=== PATIENT | female | born 1965 | race Caucasian/White ===

== ENCOUNTER → 2017-09-24 10:07 | Outpatient (POV) | payer BC, SELFPAY ==
[2017-09-24 10:34] VITALS: BP 116/77; PULSE 79; RESP 16; TEMP 36.5; O2SAT 97
--- NOTE | 2017-09-24 11:24 | HMH.PMCON ---
Assessment and Plan (1) Lumbosacral radiculopathy due to degenerative joint disease of spine Current visit: Yes Status: Chronic Category: Medical Code(s): M47.27 - Other spondylosis with radiculopathy, lumbosacral region (2) Degenerative joint disease of cervical and lumbar spine Current visit: Yes Status: Chronic Category: Medical Code(s): M47.812 - Spondylosis without myelopathy or radiculopathy, cervical region; M47.816 - Spondylosis without myelopathy or radiculopathy, lumbar region (3) Degenerative joint disease (DJD) of lumbar spine Current visit: Yes Status: Chronic Category: Medical Code(s): M47.816 - Spondylosis without myelopathy or radiculopathy, lumbar region (4) Cervical radiculopathy Current visit: Yes Status: Chronic Category: Medical Code(s): M54.12 - Radiculopathy, cervical region - Assessment and plan all Dx Assessment and Plan for all problems:: I do believe that she would benefit from a cervical epidural steroid injection. We will also restart her gabapentin at 300 mg 3 times a day. We will give her a one-month prescription. Patient asked 3 times for oral narcotics and I had explained to her each time that we will not be prescribing her any oral narcotics because of her history of alcohol abuse and history of taking Suboxone. HPI - Data of Consult Patient: new to practice Consult date: 09/24/17 Requesting Physician: Salinas Gonzalez MD Primary Care Provider: Harriett Cheema - Consult Narrative Reason for consult: Neck pain and low back pain History of present illness: Ms. Johnson is a 52 year old female who has increasing neck pain and low back pain. Neck is worse at this time. MRI of the cervical spine shows disc osteophyte complex at C3-4, C4-5, C5-6 and significant facet arthropathy. MRI of the lumbar spine shows degenerative changes at L4-L5 with facet arthropathy and bulging disc. Pain score is a 8 out of 10. Today pain is radiating from the neck into both arms and into her hands. I do believe that she would benefit from a cervical epidural steroid injection. She was on gabapentin previously. She has been off gabapentin for the last 2-3 months. We will start her back on gabapentin 300 mg 3 times a day. She has a previous history of alcoholism and has been alcohol free for the last 2 months. She also has a previous history of being on Suboxone. We will not prescribe her any oral narcotics. The patient has asked for pain pills 2 times during this visit. CC: Salinas Gonzalez MD [facility] History I have reviewed the patient's past medical history: Yes Medical History: Reports:: Hypertension Denies:: Cancer, Diabetes Mellitus Type 1, Diabetes Mellitus Type 2, MRSA Amputation: No Fractures: No - *Social History Educational Level: Completed High School Smoking Status: Current every day smoker Tobacco Type: cigarettes # Packs/Day (cigarettes): 1 Alcohol Intake: former Alcohol Intake Frequency:: 3 or more drinks per day Last Used Substance: unknown Occupational Status: employed Housing: other Household Members: none - Psychiatric History Expresses thoughts of harming self/others: None Suicide Plan Description: No Plan *Family Hx:: Asthma, Cancer, Hypertension Review of Systems - Review of Systems Review of systems:: pertinent systems reviewed and negative unless documented below - *Musculoskeletal Reports back pain, Reports neck pain, Reports radiating pain into limb, Reports stiffness - *Neurologic Reports radiating pain, Reports tingling Objective Vital signs: Temp Pulse Resp BP Pulse Ox 97.7 F 79 16 116/77 97 09/24/17 10:34 09/24/17 10:34 09/24/17 10:34 09/24/17 10:34 09/24/17 10:34 - *Routine Neck Exam Present: full ROM - Routine Back/Spine/Pelvis Exam Back/Spine: Present: vertebral tenderness, pain with flexion - *Routine Neurological Exam Present: alert, oriented X3 Opioid Risk Tool - Opioid Risk Tool-Female Family h
--- NOTE | 2017-09-24 11:27 | P.CONS_ITS ---
Assessment and Plan (1) Lumbosacral radiculopathy due to degenerative joint disease of spine Current visit: Yes Status: Chronic Category: Medical Code(s): M47.27 - Other spondylosis with radiculopathy, lumbosacral region (2) Degenerative joint disease of cervical and lumbar spine Current visit: Yes Status: Chronic Category: Medical Code(s): M47.812 - Spondylosis without myelopathy or radiculopathy, cervical region; M47.816 - Spondylosis without myelopathy or radiculopathy, lumbar region (3) Degenerative joint disease (DJD) of lumbar spine Current visit: Yes Status: Chronic Category: Medical Code(s): M47.816 - Spondylosis without myelopathy or radiculopathy, lumbar region (4) Cervical radiculopathy Current visit: Yes Status: Chronic Category: Medical Code(s): M54.12 - Radiculopathy, cervical region - Assessment and plan all Dx Assessment and Plan for all problems:: I do believe that she would benefit from a cervical epidural steroid injection. We will also restart her gabapentin at 300 mg 3 times a day. We will give her a one-month prescription. Patient asked 3 times for oral narcotics and I had explained to her each time that we will not be prescribing her any oral narcotics because of her history of alcohol abuse and history of taking Suboxone. HPI - Data of Consult Patient: new to practice Consult date: 09/24/17 Requesting Physician: Salinas Gonzalez MD Primary Care Provider: Harriett Cheema - Consult Narrative Reason for consult: Neck pain and low back pain History of present illness: Ms. Johnson is a 52 year old female who has increasing neck pain and low back pain. Neck is worse at this time. MRI of the cervical spine shows disc osteophyte complex at C3-4, C4-5, C5-6 and significant facet arthropathy. MRI of the lumbar spine shows degenerative changes at L4-L5 with facet arthropathy and bulging disc. Pain score is a 8 out of 10. Today pain is radiating from the neck into both arms and into her hands. I do believe that she would benefit from a cervical epidural steroid injection. She was on gabapentin previously. She has been off gabapentin for the last 2-3 months. We will start her back on gabapentin 300 mg 3 times a day. She has a previous history of alcoholism and has been alcohol free for the last 2 months. She also has a previous history of being on Suboxone. We will not prescribe her any oral narcotics. The patient has asked for pain pills 2 times during this visit. CC: Salinas Gonzalez MD [facility] History I have reviewed the patient's past medical history: Yes Medical History: Reports:: Hypertension Denies:: Cancer, Diabetes Mellitus Type 1, Diabetes Mellitus Type 2, MRSA Amputation: No Fractures: No - *Social History Educational Level: Completed High School Smoking Status: Current every day smoker Tobacco Type: cigarettes # Packs/Day (cigarettes): 1 Alcohol Intake: former Alcohol Intake Frequency:: 3 or more drinks per day Last Used Substance: unknown Occupational Status: employed Housing: other Household Members: none - Psychiatric History Expresses thoughts of harming self/others: None Suicide Plan Description: No Plan *Family Hx:: Asthma, Cancer, Hypertension Review of Systems - Review of Systems Review of systems:: pertinent systems reviewed and negative unless documented below - *Musculoskeletal Reports back pain, Reports neck pain, Reports radiating pain into limb, Reports stiffness - *Neurologic Reports radiating pain, Reports tingling Objective Vital signs:
== END ==
PROVIDERS: PCP Internal Medicine; Visit Provider Anesthesiology
DX: M47.27 Other spondylosis with radiculopathy, lumbosacral region (principal); M47.812 Spondylosis without myelopathy or radiculopathy, cervical region
CPT/HCPCS: 99202

== ENCOUNTER → 2017-10-26 10:27 | Day surgery (SDC) | payer BC, SELFPAY ==
[2017-10-26 10:37] VITALS: BP 115/58; PULSE 82; RESP 20; TEMP 37.1; O2SAT 98; BMI 21.2
--- NOTE | 2017-10-26 12:16 | HMH.PMPROC ---
- Procedure Date: 10/26/17 Time: 12:16 Anesthesiologist:: Salinas Gonzalez MD Complications:: None Pre-procedure Diagnosis:: Degenerative disc disease of the cervical spine with cervical radiculopathy symptoms Post-procedure Diagnosis:: Same Indications for Procedure:: This patient is a pleasant 52-year-old white female who we are treating for neck pain with cervical radiculopathy symptoms. MRI of the cervical spine shows disc osteophyte complex at C3-4, C4-5, C5-6 with significant facet arthropathy. We will do a cervical epidural steroid injection today to see if this helps with her pain symptoms. She is currently on her gabapentin 300 mg 3 times a day. Again because of her history of alcohol abuse and history of taking Suboxone we will not prescribe her any oral. Procedure Details:: Cervical epidural steroid injection under fluoroscopy Informed consent was obtained and the risks and benefits of the procedure was explained to the patient. The patient was taken to the procedure room placed prone on the procedure table. The neck was prepped using ChloraPrep. The skin and subcutaneous tissues were anesthetized using lidocaine. I placed a 18-gauge epidural needle into the C5-C6 interspace and advanced using [id number] to air and fluoroscopic guidance. After confirmation of needle placement in the epidural space with dye, I injected 3 mL's lidocaine 1.5% and Depo-Medrol 80 mg. The patient tolerated the procedure well with no complications. Plan and Disposition:: We will follow-up with her in 2 weeks. We will reevaluate her symptoms at that time. We will also increase her gabapentin to 600 mg 3 times a day. He did have pain medicine again today. I told her that we will not prescribe her any oral narcotics because of her history of alcohol abuse and previous Suboxone use.
[2017-10-26 12:21] VITALS: BP 119/62; PULSE 91; RESP 20; O2SAT 97
[2017-10-26 12:22] VITALS: BP 120/85; PULSE 85; RESP 18
--- NOTE | 2017-10-26 12:25 | P.PCN_ITS ---
- Procedure Date: 10/26/17 Time: 12:16 Anesthesiologist:: Salinas Gonzalez MD Complications:: None Pre-procedure Diagnosis:: Degenerative disc disease of the cervical spine with cervical radiculopathy symptoms Post-procedure Diagnosis:: Same Indications for Procedure:: This patient is a pleasant 52-year-old white female who we are treating for neck pain with cervical radiculopathy symptoms. MRI of the cervical spine shows disc osteophyte complex at C3-4, C4-5, C5-6 with significant facet arthropathy. We will do a cervical epidural steroid injection today to see if this helps with her pain symptoms. She is currently on her gabapentin 300 mg 3 times a day. Again because of her history of alcohol abuse and history of taking Suboxone we will not prescribe her any oral. Procedure Details:: Cervical epidural steroid injection under fluoroscopy Informed consent was obtained and the risks and benefits of the procedure was explained to the patient. The patient was taken to the procedure room placed prone on the procedure table. The neck was prepped using ChloraPrep. The skin and subcutaneous tissues were anesthetized using lidocaine. I placed a 18- gauge epidural needle into the C5-C6 interspace and advanced using loss-of- resistance to air and fluoroscopic guidance. After confirmation of needle placement in the epidural space with dye, I injected 3 mL's lidocaine 1.5% and Depo-Medrol 80 mg. The patient tolerated the procedure well with no complications. Plan and Disposition:: We will follow-up with her in 2 weeks. We will reevaluate her symptoms at that time. We will also increase her gabapentin to 600 mg 3 times a day. He did have pain medicine again today. I told her that we will not prescribe her any oral narcotics because of her history of alcohol abuse and previous Suboxone use.
[2017-10-26 12:26] VITALS: BP 116/69; PULSE 69; RESP 16; TEMP 36.8; O2SAT 99
--- NOTE | 2017-10-29 12:30 | PC.PHONENOTE ---
called in Rx for Gabapentin 600mg TID with 1 refill to pt's pharmacy per md order
== END ==
PROVIDERS: PCP Internal Medicine; Visit Provider Anesthesiology
DX: M50.11 Cervical disc disorder with radiculopathy, high cervical region (principal); M50.121 Cervical disc disorder at C4-C5 level with radiculopathy
CPT/HCPCS: 62321; J1040; Q9966

== ENCOUNTER → 2017-12-03 13:03 | Outpatient (POV) | payer BC, SELFPAY ==
[2017-12-03 13:13] VITALS: BP 128/86; PULSE 74; RESP 18; O2SAT 98; BMI 21.6
--- NOTE | 2017-12-03 13:29 | HMH.PAINSOAP ---
[facility] Pain Management SOAP Note Subjective:: Patient is a 52-year-old white female who presents today for follow-up after her cervical epidural steroid injection. Patient states she had significant relief for 10 days. However all of the pain came back to that. Patient is upset today stating that she is living in pain and needs help managing her pain symptoms. Patient states this is pain management and we should be doing something for her. Patient has a history of alcoholism where she went to rehab program that prescribed her Suboxone on top of her pain medication at the time. I explained to the patient that we would not be prescribing narcotic medications for her. Patient is not interested in additional injection she says is only masking her pain. Patient is interested in potential surgical intervention. She rates her pain an 8 out of 10 today. She states it is mostly in her neck and her bilateral arms. She states she has numbness and tingling as well. Patient has been taking gabapentin and she states it helps a little bit. ROS General: no recent weight change, no fever, no sleep disturbances Respiratory: no cough, no shortness of air, no recurring pulmonary infections Cardiovascular/Peripheral Vascular: No chest pain, No palpitations, no edema, no shortness of breath. Gastrointestinal: no incontinence, normal bowel movements reported Genitourinary: no incontinence Musculoskeletal: Pain, bilateral arm pain, back pain Psychiatric: normal mood/ affect, Neurological: Intermittent weakness in upper extremities at times, [denies balance issues] Objective:: Physical Exam General: Alert and oriented x3, no acute distress, pleasant and cooperative, [on room air] Lungs: Resps E/U, Symmetrical chest expansion, Eyes: PERRL Musculoskeletal: Flexion and extension of cervical and lumbar spine somewhat guarded secondary to pain, deep tendon reflexes normal, strength in upper and lower extremities [5/5], normal gait noted Neurological: speech clear, research geneticist equal, no gross sensory deficits Assessment:: Degenerative disc disease of the lumbar spine with lumbar radiculopathy and degenerative disc disease of the cervical spine with cervical radiculopathy Plan:: I will send this patient to Dr. Elaine for an evaluation for surgery. Patient and I had a long discussion that we would not be prescribing any narcotic medication to her due to her alcoholism history and her Suboxone use. Patient states she is angry that her pain is back and is frustrated that we will not prescribe her medications. I discussed with her that we would send her to Dr. Elaine and she was free to call us and schedule an appointment after her consultation if she felt like we could be useful to her. I did mention in a neurostimulator to her. However I do believe a surgical consultation would be beneficial prior to this. We will increase her gabapentin to 800 mg 1 p.o. 3 times daily and give her 1 month worth of prescriptions. Patient's DENICE #[id number] reviewed. This note was dictated using voice recognition software and may contain errors or omissions
--- NOTE | 2017-12-03 13:34 | P.CONS_ITS ---
[facility] Pain Management SOAP Note Subjective:: Patient is a 52-year-old white female who presents today for follow-up after her cervical epidural steroid injection. Patient states she had significant relief for 10 days. However all of the pain came back to that. Patient is upset today stating that she is living in pain and needs help managing her pain symptoms. Patient states this is pain management and we should be doing something for her. Patient has a history of alcoholism where she went to rehab program that prescribed her Suboxone on top of her pain medication at the time. I explained to the patient that we would not be prescribing narcotic medications for her. Patient is not interested in additional injection she says is only masking her pain. Patient is interested in potential surgical intervention. She rates her pain an 8 out of 10 today. She states it is mostly in her neck and her bilateral arms. She states she has numbness and tingling as well. Patient has been taking gabapentin and she states it helps a little bit. ROS General: no recent weight change, no fever, no sleep disturbances Respiratory: no cough, no shortness of air, no recurring pulmonary infections Cardiovascular/Peripheral Vascular: No chest pain, No palpitations, no edema, no shortness of breath. Gastrointestinal: no incontinence, normal bowel movements reported Genitourinary: no incontinence Musculoskeletal: Pain, bilateral arm pain, back pain Psychiatric: normal mood/ affect, Neurological: Intermittent weakness in upper extremities at times, [denies balance issues] Objective:: Physical Exam General: Alert and oriented x3, no acute distress, pleasant and cooperative, [ on room air] Lungs: Resps E/U, Symmetrical chest expansion, Eyes: PERRL Musculoskeletal: Flexion and extension of cervical and lumbar spine somewhat guarded secondary to pain, deep tendon reflexes normal, strength in upper and lower extremities [5/5], normal gait noted Neurological: speech clear, help desk intern equal, no gross sensory deficits Assessment:: Degenerative disc disease of the lumbar spine with lumbar radiculopathy and degenerative disc disease of the cervical spine with cervical radiculopathy Plan:: I will send this patient to Dr. Elaine for an evaluation for surgery. Patient and I had a long discussion that we would not be prescribing any narcotic medication to her due to her alcoholism history and her Suboxone use. Patient states she is angry that her pain is back and is frustrated that we will not prescribe her medications. I discussed with her that we would send her to Dr. Elaine and she was free to call us and schedule an appointment after her consultation if she felt like we could be useful to her. I did mention in a neurostimulator to her. However I do believe a surgical consultation would be beneficial prior to this. We will increase her gabapentin to 800 mg 1 p.o. 3 times daily and give her 1 month worth of prescriptions. Patient's DENICE # [id number] reviewed. This note was dictated using voice recognition software and may contain errors or omissions
--- NOTE | 2017-12-04 13:30 | PC.PHONENOTE ---
12/03/17-called in Rx for Gabapentin 800mg TID with on refills
== END ==
PROVIDERS: PCP Internal Medicine; Visit Provider Clinical Nurse Specialist Family Health
DX: M54.12 Radiculopathy, cervical region (principal); M54.16 Radiculopathy, lumbar region
CPT/HCPCS: 99212

== ENCOUNTER → 2018-05-20 14:12 | Outpatient (POV) | payer BC, SELFPAY ==
[2018-05-20 14:28] VITALS: BP 107/44; PULSE 68; RESP 18; O2SAT 100; BMI 20.5
--- NOTE | 2018-05-20 15:04 | HMH.PAINSOAP ---
[facility] Pain Management SOAP Note Subjective:: Patient is a pleasant 53-year-old white female who presents today for follow-up. He has had a cervical epidural steroid injection with no relief. She was supposed to be seen by Dr. Elaine however she states she did not get a call for the evaluation. Patient needs a new cervical MRI. Patient rates her pain as 8 out of 10. Patient on gabapentin 800 mg 1 p.o. 3 times a day. Patient has a history of alcoholism where she went to rehab program that prescribed her Suboxone. She took this on top of her pain medication. Patient is not a narcotic candidate. Patient has been told this multiple times. Patient is asking for narcotic medicine today. We will send her for drug screen before we refill her gabapentin. ROS General: no recent weight change, no fever, no sleep disturbances Respiratory: no cough, no shortness of air, no recurring pulmonary infections Cardiovascular/Peripheral Vascular: No chest pain, No palpitations, no edema, no shortness of breath. Gastrointestinal: no incontinence, normal bowel movements reported Genitourinary: no incontinence Musculoskeletal: Neck pain Psychiatric: normal mood/ affect Neurological: [denies weakness in extremities], [denies balance issues] Objective:: Physical Exam General: Alert and oriented x3, no acute distress, pleasant and cooperative, [on room air] Lungs: Resps E/U, Symmetrical chest expansion, Eyes: PERRL Musculoskeletal: Flexion and extension of cervical spine somewhat guarded secondary to pain, deep tendon reflexes normal, strength in upper and lower extremities [5/5], slightly antalgic gait noted Neurological: speech clear, metal filer equal, no gross sensory deficits Assessment:: degenerative disc disease of the cervical spine with cervical radiculopathy Plan:: We will get a new MRI of the patient's neck we will then send her Dr. Elaine evaluation. Patient is not a narcotic candidate. We will refill her gabapentin 800 mg 1 p.o. 4 times daily if she has an appropriate drug screen today. We will also call in Celebrex 200 mg 1 p.o. daily if she has an appropriate drug screen. I will follow-up with the patient after her evaluation. This note was dictated using voice recognition software and may contain errors or omissions Addendum: Patient did not go to the laboratory when asked to provide a urine sample. We will not be prescribing any medications to this patient at any time. We will not see the patient back unless she has been evaluated by Dr. Elaine.
--- NOTE | 2018-05-20 15:07 | P.CONS_ITS ---
[facility] Pain Management SOAP Note Subjective:: Patient is a pleasant 53-year-old white female who presents today for follow-up. He has had a cervical epidural steroid injection with no relief. She was supposed to be seen by Dr. Elaine however she states she did not get a call for the evaluation. Patient needs a new cervical MRI. Patient rates her pain as 8 out of 10. Patient on gabapentin 800 mg 1 p.o. 3 times a day. Patient has a history of alcoholism where she went to rehab program that prescribed her Suboxone. She took this on top of her pain medication. Patient is not a narcotic candidate. Patient has been told this multiple times. Patient is asking for narcotic medicine today. We will send her for drug screen before we refill her gabapentin. ROS General: no recent weight change, no fever, no sleep disturbances Respiratory: no cough, no shortness of air, no recurring pulmonary infections Cardiovascular/Peripheral Vascular: No chest pain, No palpitations, no edema, no shortness of breath. Gastrointestinal: no incontinence, normal bowel movements reported Genitourinary: no incontinence Musculoskeletal: Neck pain Psychiatric: normal mood/ affect Neurological: [denies weakness in extremities], [denies balance issues] Objective:: Physical Exam General: Alert and oriented x3, no acute distress, pleasant and cooperative, [on room air] Lungs: Resps E/U, Symmetrical chest expansion, Eyes: PERRL Musculoskeletal: Flexion and extension of cervical spine somewhat guarded second wilver to pain, deep tendon reflexes normal, strength in upper and lower extremities [5/5], slightly antalgic gait noted Neurological: speech clear, design consultant equal, no gross sensory deficits Assessment:: degenerative disc disease of the cervical spine with cervical radiculopathy Plan:: We will get a new MRI of the patient's neck we will then send her Dr. Elaine evaluation. Patient is not a narcotic candidate. We will refill her gabapentin 800 mg 1 p.o. 4 times daily if she has an appropriate drug screen today. We will also call in Celebrex 200 mg 1 p.o. daily if she has an appropriate drug screen. I will follow-up with the patient after her evaluation. This note was dictated using voice recognition software and may contain errors or omissions Addendum: Patient did not go to the laboratory when asked to provide a urine sample. We will not be prescribing any medications to this patient at any time. We will not see the patient back unless she has been evaluated by Dr. Elaine.
== END ==
PROVIDERS: PCP Internal Medicine; Visit Provider Clinical Nurse Specialist Family Health
DX: M50.10 Cervical disc disorder with radiculopathy, unspecified cervical region (principal)
CPT/HCPCS: 99213